=== PATIENT | female | born 1955 | race Caucasian/White ===

== ENCOUNTER → 2021-04-11 | Outpatient (CLI) | payer OTHER | LOC: MAMO 03-21 15:30 | DX: Z12.31 Encounter for screening mammogram for malignant neoplasm of breast (principal); N64.89 Other specified disorders of breast; N60.01 Solitary cyst of right breast | CPT/HCPCS: 77063; 77067 ==

== ENCOUNTER → 2021-05-08 | Outpatient (CLI) | payer OTHER | LOC: MAMO 11:44 → US 14:00 → MAMO 14:30 | DX: R92.8 Other abnormal and inconclusive findings on diagnostic imaging of breast (principal); N60.01 Solitary cyst of right breast | CPT/HCPCS: 76641-RT; 77065; G0279 ==

== ENCOUNTER → 2021-12-12 | Outpatient (CLI) | payer OTHER | LOC: KOH-I 15:12 | DX: R05.9 Cough, unspecified (principal); R06.2 Wheezing | CPT/HCPCS: 71046 ==